=== PATIENT | female | born 1965 | race Caucasian/White ===

== ENCOUNTER 2019-06-13 16:52 | Emergency (ER) | payer BC ==
[~2019-06-13] VITALS: Ht 176.5 cm; Wt 82.9 kg
[2019-06-13 17:06] VITALS: BP 119/50
[2019-06-13] MEDS ORDERED: PRED20TA PO (17:20)
[2019-06-13] MEDS ORDERED: triamcinolone acetonide 40mg/ml inj IM ONE (17:20)
[2019-06-13] MEDS ORDERED: TRIA15CR62 TOP (17:20)
== END 2019-06-13 17:47 | disposition home or self-care (01) ==
LOC: ER 16:53
DX: L30.9 Dermatitis, unspecified (principal); Z79.899 Other long term (current) drug therapy
CPT/HCPCS: 96372; 99283; J3301